=== PATIENT | male | born 1940 | race Caucasian/White ===

== ENCOUNTER 2017-03-23 05:45 | Emergency (ER) | payer MEDICARE, BC ==
--- NOTE | 2017-03-23 06:09 | ERNOTE ---
Dizziness ER Record Presenting Symptoms: dizziness Time Seen by Provider: 03/23/17 06:03 Source: patient Exam Limitations: no limitations Immunizations: IMMUNIZATION HX Immunizations Up to Date Yes History of Influenza Vaccine No Hx Pneumococcal Vaccination No Allergies/Adverse Reactions: Allergies Allergy/AdvReac Type Severity Reaction Status Date / Time simvastatin AdvReac Verified 03/23/17 06:00 Home Medications: HOME MEDICATIONS Finasteride [Proscar] 5 mg PO DAILY 07/29/15 [Last Taken Unknown] Memantine HCl [Namenda] 10 mg PO BID 06/11/16 [Last Taken Unknown] Oxybutynin Chloride [Ditropan] 5 mg PO BID 06/11/16 [Last Taken Unknown] Tamsulosin HCl [Flomax] 0.4 mg PO HS #90 cap.er.24h 06/12/16 [Last Taken Unknown ] Acetaminophen [Tylenol] 650 mg PO Q4H PRN 03/23/17 [Last Taken Unknown] Aspirin [Aspirin EC] 325 mg PO DAILY 03/23/17 [Last Taken Unknown] Multivitamin [Multivitamins] 2 each PO DAILY 03/23/17 [Last Taken Unknown] Venlafaxine HCl [Venlafaxine HCl ER] 75 mg PO DAILY 03/23/17 [Last Taken Unknown ] - History of Present Illness Narrative: Pt had an episode of severe dizziness on Wednesday that lasted a few hours and spontaneously resolved. This morning he began to get up and had onset of severe dizziness described as off balance not spinning. Timing and Duration: sudden onset, still present Noted on awakening:: No - upon getting up from bed Severity: max: severe Severity: currently: severe Associated Symptoms: Present: nausea, vomiting - dry heaves, sweating. Absent: hearing loss, ringing/roaring in ear, headache, weakness, numbness Sense of movement: Present: none Decreased ability to stand/walk:: Present: off balance Usually:: Present: walks w/o assistance Modifying Factors - (Improves): Reports: nothing Modifying Factors - (Worsens): Reports: nothing Review of Systems - Review of Systems Constitutional: Absent: recent illness, fever, chills EYE: Absent: vision changes ENT: Absent: nose congestion, sore throat Respiratory: Absent: shortness of breath Cardiology: Absent: chest pain Gastrointestinal/Abdominal: Present: nausea, vomiting - dry heaves. Absent: diarrhea, constipation Genitourinary: Present: no symptoms reported Musculoskeletal: Present: no symptoms reported Skin: Absent: rash Neurological: Present: See HPI, dizziness/light-headedness. Absent: headache, weakness, numbness Endocrine: Present: excessive sweating Hematologic/Lymphatic: Present: no symptoms reported Psych: Present: no symptoms reported - Patient's Past Medical History Patient History - Medical: ADHD, Alzheimer's Disease, Dementia, Depression, Other Patient History - Cardiac/Respiratory: Atrial Fibrillation, CVA/Stroke Patient History - Cancer: Bladder Patient History - Surgical Procedures: Appendectomy, Colonoscopy, Vasectomy, Other Patient History - Other: None - Family History Mother Family History - Medical: , Diabetes Type 2 Family History - Cardiac/Respiratory: No pertinent hx Father Family History - Medical: Family History - Cardiac/Respiratory: No pertinent hx - Social History Living Situations: home Abuse History: No History of abuse Psych History: Hx of Depression, Current tx/ever been on anti-depressants or anti-anxiety meds Smoking Status: Former smoker Alcohol Use: rarely Drug Use: none - Immunizations Immunizations Up to Date: Yes Hx Pneumococcal Vaccination: No History of Influenza Vaccine: No Physical Exam - Physical Exam General Appearance: Present: wd/wn, alert, mild distress - Pt wanting Head Exam: Present: normal inspection, no evidence of injury Eye Exam: Normal inspection: bilateral, EOMI: bilateral - with fine nystagmus with gaze to the right Ears, Nose, Throat: Present: normal ENT inspection, normal pharynx Neck: Present: normal inspection, nontender Respiratory: Present: no respiratory distress, no accessory muscle use, lungs clear Cardiovascular/Chest: Present: regular rate, rhythm, no murmur, normal peripheral pulses Gastrointestinal/Abdominal: Present: normal bowel sounds, nontender, nondistended Back Exam: Present: normal inspection, no vertebral tenderness Extremity Exam: Present: normal inspection, normal range of motion, no edema Neurological Exam: Present: alert, oriented, senior estimator II-XII nml as tested Skin Exam: Present: normal color, warm/dry Lymphatic Exam: Present: no adenopathy ED Progress - Results and Orders Patient's Lab Results:: I have reviewed the patient's lab results. Results and Orders: Laboratory Tests 03/23/17 03/23/17 03/23/17 06:15 06:15 07:43 WBC 4.7 Hgb 15.3 Hct 43.2 Plt Count 183 Sodium 142 Potassium 3.6 Chloride 106 BUN 22 Creatinine 0.96 BUN/Creatinine Ratio 22.9 H Random Glucose 143 H Calcium 8.4 Total Bilirubin 0.5 AST 16 ALT 23 Alkaline Phosphatase 114 Total Protein 6.8 Albumin 3.6 Urine Color Yellow Urine Appearance Clear Urine pH 6.0 Ur Specific [place] 1.015 Urine Protein Negative Urine Glucose (UA) Negative Urine Ketones Negative Urine Blood Negative Urine Nitrate Negative Urine Bilirubin Negative Urine Urobilinogen Normal Ur Leukocyte Esterase Negative Urine RBC Trace Urine WBC Trace Ur Epithelial Cells None seen Urine Bacteria None seen Urine Culture Comments No culture indicated - Vital Signs Patient's Vital Signs:: I have reviewed the patient's vital signs. Vital Signs: Vital Signs 03/23/17 05:48 Temperature 36.2 C L Pulse Rate 105 H Respiratory 20 Rate Blood Pressure 162/97 O2 Sat by Pulse 95 Oximetry - EKG EKG: NSR - with frequent supraventricular premature complexes, nonspecific ST T wave changes EKG read: Interp. by me - X-Ray X-Ray #1 X-Ray: chest Interpretation: Reviewed by me X-ray Comments: No acute changes. 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 He then closes his eyes and states he is only a little better. Will allow him some more time to improve with the meclizine. Have referred him to PT and he has an appointment tomorrow at 14:30. He can be discharged as he continues to improve. Departure Clinical Impression: Dizziness, nonspecific - Departure Disposition: Home Follow Up Needed Condition: Good Instructions: Dizziness, [id number] Additional Instructions: See PT tomorrow at 2:30 for treatment. Call [phone] and ask for physical therapy department if you need to contact them.
[2017-03-23 06:23] LABS: Hematocrit 43.2 % (42.0-52.0); Hemoglobin 15.3 gm/dL (13.5-18.0); Mean Cell Volume 90.8 fl (78-100); Mean Corpuscular Hemoglobin 32.1 pg (27-31); Mean Corpuscular Hgb Conc 35.4 g/dl (32-36); Mean Platelet Volume 8.6 fl (6.0-9.5); Neutrophil # 2.8 K/mm3 (1.3-6.0); Neutrophil % 59.1 % (42-75.0); Platelet Count 183 K/mm3 (150-450); Red Blood Count 4.76 M/mm3 (4.7-6.0); Red Cell Distribution Width 12.3 % (11.5-14.0); White Blood Count 4.7 K/mm3 (4.0-10.5)
[2017-03-23 06:35] LABS: Albumin * 3.6 gm/dl (3.4-5.0); Anion Gap 13.3 mmol/L (6.8-13.8); BUN/Creatinine Ratio 22.9 (9.0-21.6); Calcium * 8.4 mg/dL (7.9-10.9); Carbon Dioxide 26.3 mmol/L (24-32.6); Potassium 3.6 mmol/L (3.4-4.6); Total Protein 6.8 gm/dL (6.2-8.2)
[2017-03-23 06:36] LABS: Bilirubin, Total 0.5 mg/dL (0.0-1.1); Ca. Corrected For Albumin 8.4 mg/dL (8.4-10.2)
[2017-03-23 07:56] LABS: Urine Bilirubin Negative (NEGATIVE); Urine Blood Negative /ul (NEGATIVE); Urine Ketone Negative (NEGATIVE); Urine Nitrite Negative (NEGATIVE); Urine Protein Negative (NEGATIVE); Urine Specific Gravity 1.015 SP.GR. (1.005-1.030); Urine Urobilinogen Normal (NORMAL)
[2017-03-23 08:10] LABS: Urine Appearance Clear; Urine Bacteria None Seen; Urine Color Yellow; Urine RBC TRACE /hpf (0-5); Urine WBC TRACE /hpf (0-5)
[2017-03-23] MEDS ORDERED: NORMAL SALINE 1,000 ML IV ONE (08:14)
[2017-03-23] MEDS ORDERED: MECLIZINE HCL 25 MG TABLET PO ONE (08:15)
[2017-03-23] MEDS ORDERED: MECLIZINE HCL 25 MG TABLET ONE (08:19)
[2017-03-23 10:43] VITALS: BP 145/78
== END 2017-03-23 11:24 | disposition home or self-care (01) ==
LOC: ER 05:45
DX: R42 Dizziness and giddiness (principal); G30.9 Alzheimer's disease, unspecified; F02.80 Dementia in other diseases classified elsewhere, unspecified severity, without behavioral disturbance, psychotic disturbance, mood disturbance, and anxiety; Z85.51 Personal history of malignant neoplasm of bladder; Z87.891 Personal history of nicotine dependence

== ENCOUNTER 2017-04-13 11:20 | Emergency (ER) | payer MEDICARE, BC ==
[2017-04-13] MEDS ORDERED: NORMAL SALINE 1,000 ML IV ONE (11:54)
[2017-04-13] MEDS ORDERED: ONDANSETRON HCL/PF 2 MG/ML VIAL IV ONE (11:54)
--- NOTE | 2017-04-13 11:57 | ERNOTE ---
Dizziness ER Record Date of Service: 04/13/17 Presenting Symptoms: dizziness Time Seen by Provider: 04/13/17 11:50 Source: patient Exam Limitations: no limitations Immunizations: IMMUNIZATION HX Immunizations Up to Date Yes History of Influenza Vaccine No Hx Pneumococcal Vaccination Yes Allergies/Adverse Reactions: Allergies Allergy/AdvReac Type Severity Reaction Status Date / Time simvastatin AdvReac Verified 04/13/17 11:36 Home Medications: HOME MEDICATIONS Finasteride [Proscar] 5 mg PO DAILY 07/29/15 [Last Taken Unknown] Memantine HCl [Namenda] 10 mg PO BID 06/11/16 [Last Taken Unknown] Oxybutynin Chloride [Ditropan] 5 mg PO BID 06/11/16 [Last Taken Unknown] Tamsulosin HCl [Flomax] 0.4 mg PO HS #90 cap.er.24h 06/12/16 [Last Taken Unknown ] Acetaminophen [Tylenol] 650 mg PO Q4H PRN 03/23/17 [Last Taken Unknown] Aspirin [Aspirin EC] 325 mg PO DAILY 03/23/17 [Last Taken Unknown] Multivitamin [Multivitamins] 2 each PO DAILY 03/23/17 [Last Taken Unknown] Venlafaxine HCl [Venlafaxine HCl ER] 75 mg PO DAILY 03/23/17 [Last Taken Unknown ] Meclizine HCl 25 mg PO TID PRN #30 tablet 04/13/17 [Last Taken Unknown] - History of Present Illness Narrative: This patient presents to the emergency room for sudden episode of dizziness that began this morning. Patient states he was fine last night. He denies any trauma to his head. He complains of bilateral frontal headache today photophobia and dizziness. He has had a history of vertigo. When he closes his eyes his symptoms improved significantly Review of Systems - Review of Systems Constitutional: Present: no symptoms reported EYE: Present: no symptoms reported ENT: Present: no symptoms reported Respiratory: Present: no symptoms reported Cardiology: Present: no symptoms reported Gastrointestinal/Abdominal: Present: no symptoms reported Genitourinary: Present: no symptoms reported Musculoskeletal: Present: no symptoms reported Skin: Present: no symptoms reported Neurological: Present: dizziness/light-headedness - Patient's Past Medical History Patient History - Medical: ADHD, Alzheimer's Disease, Dementia, Depression, Other Patient History - Cardiac/Respiratory: Atrial Fibrillation, CVA/Stroke Patient History - Cancer: Bladder Patient History - Surgical Procedures: Appendectomy, Colonoscopy, EGD, Vasectomy , Other Patient History - Other: None - Family History Mother Family History - Medical: , Diabetes Type 2 Family History - Cardiac/Respiratory: No pertinent hx Father Family History - Medical: Family History - Cardiac/Respiratory: No pertinent hx - Social History Living Situations: home Abuse History: No History of abuse Psych History: Hx of Depression, Current tx/ever been on anti-depressants or anti-anxiety meds Smoking Status: Never smoker Alcohol Use: none Drug Use: none - Immunizations Immunizations Up to Date: Yes Hx Pneumococcal Vaccination: Yes History of Influenza Vaccine: No Physical Exam - Physical Exam General Appearance: Present: wd/wn, alert, no apparent distress, other - patient is stable however the light is bothering his eyes and he feels much better when he closes his eyes his dizziness significantly improves when he has his eyes closed Head Exam: Present: normal inspection Eye Exam: Normal inspection: bilateral, PERRL: bilateral, EOMI: bilateral Ears, Nose, Throat: Present: normal ENT inspection Neck: Present: normal inspection, nontender Respiratory: Present: no respiratory distress, normal breath sounds, no accessory muscle use, chest nontender, lungs clear Cardiovascular/Chest: Present: regular rate, rhythm, no murmur, normal peripheral pulses Neurological Exam: Present: alert, oriented, normal mood/affect, no motor/ sensory deficits. Absent: motor weakness ED Progress - Vital Signs Patient's Vital Signs:: I have reviewed the patient's vital signs. Vital Signs: Vital Signs 04/13/17 11:30 Temperature 36.1 C L Pulse Rate 73 Respiratory 15 Rate Blood Pressure 142/65 O2 Sat by Pulse 97 Oximetry - CT/Ultrasound CT/Ultrasound Narrative: Head CT was ordered and reviewed - Progress/Reassessment Chief Complaint: Dizziness Plan - Plan Plan: This patient's symptoms are most consistent with vertigo. Departure Clinical Impression: Benign positional vertigo Qualifiers: Laterality: unspecified laterality Qualified Code(s): H81.10 - Benign paroxysmal vertigo, unspecified ear - Departure Disposition: Home self-care Condition: Good Instructions: Vertigo, [id number] Referrals: Blanca Ruiz DO [Primary Care Provider] - Prescriptions: Meclizine HCl 25 mg PO TID PRN #30 tablet PRN Reason: Vertigo
[2017-04-13] MEDS ORDERED: ONDANSETRON HCL/PF 2 MG/ML VIAL ONE (12:37)
[2017-04-13] MEDS ORDERED: MECLIZINE HCL 25 MG TABLET PO ONE (13:37)
[2017-04-13] MEDS ORDERED: MECLIZINE HCL 25 MG TABLET ONE (13:38)
[2017-04-13 14:26] VITALS: BP 148/75
== END 2017-04-13 14:20 | disposition home or self-care (01) ==
LOC: ER 11:20
DX: H81.10 Benign paroxysmal vertigo, unspecified ear (principal); Z85.51 Personal history of malignant neoplasm of bladder
CPT/HCPCS: 70450; 93005; 96374; 99284; J2405